=== PATIENT | female | born 2000 | race African-American/Black ===

== ENCOUNTER 2023-05-09 22:54 | Emergency (ER) | payer MEDICAID, OTHER ==
[~2023-05-09] VITALS: Ht 162.6 cm; Wt 52.0 kg
[2023-05-09 23:14] VITALS: BP 119/72; PULSE 89; RESP 17; TEMP 98.1; O2SAT 100
[2023-05-10] MEDS ORDERED: BACITRACIN ZINC OINT UDPKT TOP ONE
[2023-05-10] MEDS ORDERED: LIDOCAINE HCL/PF 1% 10 MG/ML 5ML VIAL INFIL ONE
[2023-05-10] MEDS ORDERED: TETANUS, DIPHTHERIA, PERTUSSIS VAC/PF 0.5ML (>10YR OLD) IM ONE
[2023-05-10] MEDS ORDERED: BO1 TP (00:12)
== END 2023-05-10 03:37 | disposition home or self-care (01) ==
LOC: ER 22:54
DX: S69.91XA Unspecified injury of right wrist, hand and finger(s), initial encounter (principal); W26.8XXA Contact with other sharp object(s), not elsewhere classified, initial encounter; Y93.89 Activity, other specified; Y92.89 Other specified places as the place of occurrence of the external cause; Y99.8 Other external cause status
CPT/HCPCS: 90471; 90715; 99281; 99282; 99283